=== PATIENT | male | born 1985 | race Asian ===

== ENCOUNTER 2017-09-17 12:42 | Emergency (ER) | payer BC ==
[~2017-09-17] VITALS: Ht 210.8 cm; Wt 81.6 kg
== END 2017-09-17 15:37 | disposition home or self-care (01) ==
LOC: ED 12:42
DX: S43.401A Unspecified sprain of right shoulder joint, initial encounter (principal); V86.96XA Unspecified occupant of dirt bike or motor/cross bike injured in nontraffic accident, initial encounter; Y92.098 Other place in other non-institutional residence as the place of occurrence of the external cause
CPT/HCPCS: 99282